=== PATIENT | female | born 1945 | race Caucasian/White ===

== ENCOUNTER 2018-12-22 18:03 | Inpatient (IN) | payer MEDICARE, BC ==
[~2018-12-22] VITALS: Ht 165.1 cm; Wt 99.1 kg
--- NOTE | 2018-12-22 18:40 | NUR ---
Pt tearful with high anxiety. Redirectable with effort.
[2018-12-22 19:04] LABS: BASOPHILS # (AUTO) 0.2 X10'3 (0-0.2); BASOPHILS % (AUTO) 1.3 % (0-1); EOSINOPHILS # (AUTO) 0.1 X10'3 (0-0.9); EOSINOPHILS % (AUTO) 0.7 % (0-6); HEMATOCRIT 37.2 % (35.0-45.0); HEMOGLOBIN 12.1 g/dl (12.0-16.0); LYMPHOCYTES # (AUTO) 1.6 X10'3 (1.1-4.8); LYMPHOCYTES % (AUTO) 12.6 % (21-51); MEAN CORPUSCULAR HEMOGLOBIN 30.3 PG (27.0-31.0); MEAN CORPUSCULAR HGB CONC 32.6 g/dL (33.0-36.5); MEAN CORPUSCULAR VOLUME 92.9 FL (78-98); MEAN PLATELET VOLUME 9.1 FL (7.4-10.4); MONOCYTES # (AUTO) 0.9 X10'3 (0-0.9); MONOCYTES % (AUTO) 7.6 % (2-12); NEUTROPHILS # (AUTO) 9.6 X10'3 (1.8-7.7); NEUTROPHILS % (AUTO) 77.8 % (42-75); PLATELET COUNT 215 X10'3 (140-440); RED CELL DISTRIBUTION WIDTH 15.7 % (11.5-14.5); WHITE BLOOD COUNT 12.3 X10'3 (4.5-11.0)
[2018-12-22 19:34] LABS: ALANINE AMINOTRANSFERASE 16 U/L (12-78); ALBUMIN/GLOBULIN RATIO 0.6 (1.1-1.5); ALKALINE PHOSPHATASE 48 IU/L (46-116); ANION GAP 7 (8-16); ASPARTATE AMINO TRANSFERASE 16 U/L (10-37); BILIRUBIN,TOTAL 0.4 MG/DL (0.1-1.0); BLOOD UREA NITROGEN 26 MG/DL (7-18); BUN/CREATININE RATIO 17.2 (6.6-38.0); CALCIUM 9.8 MG/DL (8.5-10.1); CHLORIDE 104 MMOL/L (99-107); CREATININE 1.51 MG/DL (0.40-0.90); GLUCOSE 204 MG/DL (70-104); SODIUM 142 MMOL/L (135-145); TOTAL PROTEIN 7.8 G/DL (6.4-8.2); eGFR 34 ML/MIN
[2018-12-22 19:37] LABS: POTASSIUM 4.6 MMOL/L (3.5-5.1)
[2018-12-22] MEDS ORDERED: CefTRIAXone 2gm/D5W 50ml 50 ML IV ONE (20:40)
[2018-12-22] MEDS ORDERED: azithromycin/NS 500mg/250ml 250 ML IV ONE (20:40)
[2018-12-22] MEDS ORDERED: LORazepam 2 mg/ml vial IV ONE (20:50)
[2018-12-22] MEDS ORDERED: mag hydrox/Alum hydrox/simeth 30ml oral suspension PO PRN (21:10)
[2018-12-22] MEDS ORDERED: magnesium Cl slow-release 64mg tablet PO PRN (21:10)
[2018-12-22] MEDS ORDERED: magnesium 4gm in 100ml NS 100 ML IV PRN (21:10)
[2018-12-22] MEDS ORDERED: potassium CL 10mEq/100ml bag 100 ML IV PRN ×2 (21:10)
[2018-12-22] MEDS ORDERED: acetaminophen 325mg tablet PO PRN (21:10)
[2018-12-22] MEDS ORDERED: potassium Cl 20 mEq SR tablet PO PRN ×2 (21:10)
[2018-12-22] MEDS ORDERED: magnesium 2GM in 50ml NS 50 ML IV PRN (21:10)
[2018-12-22] MEDS ORDERED: magnesium hydroxide 30ml (MOM) UD suspension PO PRN (21:10)
[2018-12-22] MEDS ORDERED: ondansetron/PF 4mg/2ml inj IV PRN (21:10)
--- NOTE | 2018-12-22 21:31 | NUR ---
pt belonings: campos counted with Reg & receipted (T+$177: 1x$100, 1x$50, 2x$10, 1x$5, 2x$1). 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
[2018-12-22] MEDS ORDERED: GLIMEPIRIDE 4 MG TABLET (21:42)
[2018-12-22] MEDS ORDERED: LORAZEPAM 2 MG TABLET (21:42)
[2018-12-22] MEDS ORDERED: METFORMIN HCL 500 MG TABLET (21:42)
[2018-12-22] MEDS ORDERED: ESCITALOPRAM 10 MG TABLET (21:42)
[2018-12-22] MEDS ORDERED: LOSARTAN POTASSIUM 100 MG TAB (21:42)
[2018-12-22] MEDS ORDERED: NATEGLINIDE 120 MG TABLET (21:42)
[2018-12-22] MEDS ORDERED: CLOPIDOGREL 75 MG TABLET (21:42)
[2018-12-22] MEDS ORDERED: FUROSEMIDE 40 MG TABLET (21:42)
[2018-12-22] MEDS ORDERED: CALCITRIOL 0.5 MCG CAPSULE PO (21:42)
[2018-12-22] MEDS ORDERED: ROSUVASTATIN CALCIUM 10 MG TAB (21:42)
[2018-12-22] MEDS ORDERED: CARVEDILOL 25 MG TABLET (21:42)
[2018-12-22] MEDS ORDERED: SAXA5TAB PO (21:50)
[2018-12-22] MEDS ORDERED: LACT1CAP65 PO (21:50)
[2018-12-22] MEDS ORDERED: ASPI-1265 PO (21:50)
[2018-12-22] MEDS ORDERED: ESCI10TA PO (21:50)
[2018-12-22 22:30] VITALS: BP 137/68
[2018-12-22] MEDS ORDERED: ipratropium/albuterol 3ml nebule NEB PRN (23:50)
[2018-12-23] MEDS ORDERED: dextrose ORAL solution 15 GM/59 ML bottle PO PRN ×2 (01:15)
[2018-12-23] MEDS ORDERED: MESSAGE TO PHARMACY PO ONE (01:15)
[2018-12-23] MEDS ORDERED: glucagon, human recombinant 1mg kit SUBCUT PRN (01:15)
[2018-12-23] MEDS ORDERED: dextrose 50%-water 50ml dispensing syringe IV PRN ×2 (01:15)
[2018-12-23] MEDS: lactobacillus rhamnosus 10,000 MMU CELLS/CAPSULE PO SCH ×3 (01:59→15:15)
[2018-12-23 02:00] VITALS: BP 150/57
[2018-12-23 06:00] VITALS: BP 110/62
--- NOTE | 2018-12-23 06:22 | NUR ---
REPORT GIVEN TO MENDEZ SAVAGE.
--- NOTE | 2018-12-23 06:32 | NUR ---
Patient in room [facility] 4011. I have received report from Dolores and had the opportunity to ask questions and assume patient care.
[2018-12-23 07:57] LABS: BASOPHILS # (AUTO) 0.1 X10'3 (0-0.2); BASOPHILS % (AUTO) 1.5 % (0-1); EOSINOPHILS # (AUTO) 0.2 X10'3 (0-0.9); EOSINOPHILS % (AUTO) 2.4 % (0-6); HEMATOCRIT 34.9 % (35.0-45.0); HEMOGLOBIN 11.4 g/dl (12.0-16.0); LYMPHOCYTES # (AUTO) 1.9 X10'3 (1.1-4.8); LYMPHOCYTES % (AUTO) 21.4 % (21-51); MEAN CORPUSCULAR HEMOGLOBIN 30.8 PG (27.0-31.0); MEAN CORPUSCULAR HGB CONC 32.7 g/dL (33.0-36.5); MEAN CORPUSCULAR VOLUME 94.2 FL (78-98); MEAN PLATELET VOLUME 9.7 FL (7.4-10.4); MONOCYTES # (AUTO) 0.9 X10'3 (0-0.9); MONOCYTES % (AUTO) 10.3 % (2-12); NEUTROPHILS # (AUTO) 5.7 X10'3 (1.8-7.7); NEUTROPHILS % (AUTO) 64.4 % (42-75); PLATELET COUNT 187 X10'3 (140-440); RED CELL DISTRIBUTION WIDTH 16.1 % (11.5-14.5); WHITE BLOOD COUNT 8.8 X10'3 (4.5-11.0)
[2018-12-23] MEDS: K and/or MAG REPLACEMENT MC SCH (08:00)
[2018-12-23] MEDS: aspirin 81mg tab.chew PO SCH (08:00)
[2018-12-23] MEDS: heparin, porcine 5000 units/ml vial SQ SCH ×2 (08:00→19:11)
[2018-12-23 08:08] LABS: ALBUMIN 2.6 G/DL (3.4-5.0); ANION GAP 5 (8-16); BLOOD UREA NITROGEN 23 MG/DL (7-18); BUN/CREATININE RATIO 16.5 (6.6-38.0); CALCIUM 9.4 MG/DL (8.5-10.1); CHLORIDE 109 MMOL/L (99-107); CREATININE 1.39 MG/DL (0.40-0.90); GLUCOSE 104 MG/DL (70-104); MAGNESIUM 2.1 MG/DL (1.5-2.4); POTASSIUM 3.9 MMOL/L (3.5-5.1); SODIUM 144 MMOL/L (135-145); eGFR 37 ML/MIN
[2018-12-23] MEDS: ESCITALOPRAM OXALATE 5 MG TABLET PO SCH (08:39)
[2018-12-23 10:00] VITALS: BP 147/64
--- NOTE | 2018-12-23 12:18 | NUR ---
Problems reprioritized. Patient report given, questions answered & plan of care reviewed with Kristina SIMMS.
--- NOTE | 2018-12-23 12:19 | NUR ---
Student Medication Administration:For this medication-pass time frame 7169-5840, all medications were reviewed,administered and documented per hospital policy by Arlette Silva. Student documentation:I have reviewed and agree with all interventions, assessments performed and documented by Arlette Silva.
[2018-12-23] MEDS: insulin Lispro (HumaLOG) vial - multi-dose SQ SCH ×2 (13:24→19:18)
[2018-12-23] MEDS: clopidogrel 75mg tablet PO SCH (13:46)
[2018-12-23] MEDS: LORazepam 1 MG tablet PO PRN ×2 (13:46→21:12)
[2018-12-23] MEDS ORDERED: furosemide 40mg/4ml inj IV ONE (14:05)
--- NOTE | 2018-12-23 14:05 | NUR ---
Ambulated pt in hallway using FWW. O2 on a 3L/NC while ambulating. Pulse ox prior to ambulation on 3L/02 = 92%. Pt ambulated 300 ft using FWW. Pt stopped approximately 75 feet from room. P.Ox read 82%. Encouraged pt to cough and deep breathe. 02 sat increased to 90% Gave pt I/S and instructed to use q1h and more frequently when awake. Pt returned to bed with 02 on at 3l. Pulse ox 96% at rest. Will continue to monitor.
[2018-12-23 18:00] VITALS: BP 142/69
--- NOTE | 2018-12-23 18:24 | NUR ---
Problems reprioritized. Patient report given, questions answered & plan of care reviewed with Sarah/MENDEZ Vargas.
[2018-12-23] MEDS: carVEDilol 12.5mg tablet PO SCH (19:12)
[2018-12-23] MEDS: acetaminophen 325mg tablet PO PRN (19:15)
[2018-12-23] MEDS: furosemide 40mg/4ml inj IV SCH (19:23)
[2018-12-23] MEDS: CefTRIAXone 2gm/D5W 50ml 50 ML IV SCH (19:24)
[2018-12-23] MEDS: atorvastatin 10mg tablet PO SCH (20:58)
[2018-12-23] MEDS ORDERED: azithromycin/NS 500mg/250ml 250 ML IV SCH (21:00)
[2018-12-23] MEDS: insulin glargine (Lantus) pen - multi-dose SQ SCH (21:11)
[2018-12-23 22:00] VITALS: BP 117/51
[2018-12-24] MEDS: lactobacillus rhamnosus 10,000 MMU CELLS/CAPSULE PO SCH ×4 (00:39→23:28)
[2018-12-24 06:00] VITALS: BP 129/51
--- NOTE | 2018-12-24 06:09 | NUR ---
Patient in room [facility] 4011. I have received report from MENDEZ Smith and MENDEZ Vargas and had the opportunity to ask questions and assume patient care. Addendum: 12/24/18 at 0610 by Gayatri Welch RN Amended: Links added.
[2018-12-24 07:02] LABS: BASOPHILS # (AUTO) 0.1 X10'3 (0-0.2); BASOPHILS % (AUTO) 1.4 % (0-1); EOSINOPHILS # (AUTO) 0.3 X10'3 (0-0.9); EOSINOPHILS % (AUTO) 4.7 % (0-6); HEMATOCRIT 37.1 % (35.0-45.0); HEMOGLOBIN 12.1 g/dl (12.0-16.0); LYMPHOCYTES # (AUTO) 1.7 X10'3 (1.1-4.8); LYMPHOCYTES % (AUTO) 27.5 % (21-51); MEAN CORPUSCULAR HEMOGLOBIN 30.7 PG (27.0-31.0); MEAN CORPUSCULAR HGB CONC 32.6 g/dL (33.0-36.5); MEAN CORPUSCULAR VOLUME 94.2 FL (78-98); MEAN PLATELET VOLUME 9.7 FL (7.4-10.4); MONOCYTES # (AUTO) 0.7 X10'3 (0-0.9); MONOCYTES % (AUTO) 12.1 % (2-12); NEUTROPHILS # (AUTO) 3.3 X10'3 (1.8-7.7); NEUTROPHILS % (AUTO) 54.3 % (42-75); PLATELET COUNT 195 X10'3 (140-440); RED BLOOD COUNT 3.94 X10'6 (4.20-5.60); RED CELL DISTRIBUTION WIDTH 15.2 % (11.5-14.5); WHITE BLOOD COUNT 6.1 X10'3 (4.5-11.0)
[2018-12-24 07:06] LABS: ALBUMIN 2.6 G/DL (3.4-5.0); ANION GAP 4 (8-16); BLOOD UREA NITROGEN 29 MG/DL (7-18); BUN/CREATININE RATIO 18.4 (6.6-38.0); CALCIUM 9.2 MG/DL (8.5-10.1); CHLORIDE 104 MMOL/L (99-107); CREATININE 1.58 MG/DL (0.40-0.90); GLUCOSE 130 MG/DL (70-104); MAGNESIUM 2.2 MG/DL (1.5-2.4); POTASSIUM 3.9 MMOL/L (3.5-5.1); SODIUM 142 MMOL/L (135-145); TOTAL CARBON DIOXIDE 33.7 MMOL/L (24-32); eGFR 32 ML/MIN
[2018-12-24] MEDS: K and/or MAG REPLACEMENT MC SCH (08:00)
[2018-12-24] MEDS: furosemide 40mg/4ml inj IV SCH ×2 (08:57→20:28)
[2018-12-24] MEDS: clopidogrel 75mg tablet PO SCH (08:59)
[2018-12-24] MEDS: aspirin 81mg tab.chew PO SCH (08:59)
[2018-12-24] MEDS: carVEDilol 12.5mg tablet PO SCH ×2 (08:59→20:29)
[2018-12-24] MEDS: heparin, porcine 5000 units/ml vial SQ SCH ×2 (08:59→20:29)
[2018-12-24] MEDS: losartan 50mg tablet PO SCH (09:01)
[2018-12-24] MEDS: insulin Lispro (HumaLOG) vial - multi-dose SQ SCH ×2 (09:03→18:57)
[2018-12-24] MEDS: ESCITALOPRAM OXALATE 5 MG TABLET PO SCH (09:05)
[2018-12-24 10:00] VITALS: BP 116/53
--- NOTE | 2018-12-24 15:40 | NUR ---
DM Consult: A1C 10.0. Pt seen by RD for written/verbal DM ed w/ RD contact information provided. Pt declined verbal DM ed review; reports had appointment at [facility] prior to [facility] and has to reschedule now. RD encouraged attending [facility]. PO 100% meals meeting needs. Addendum: 12/24/18 at [address] Amended: Links added.
[2018-12-24 18:00] VITALS: BP 142/58
--- NOTE | 2018-12-24 18:15 | NUR ---
Problems reprioritized. Patient report given, questions answered & plan of care reviewed with MENDEZ Obrien. Addendum: 12/24/18 at 1816 by Gayatri Welch RN Amended: Links added.
--- NOTE | 2018-12-24 18:15 | NUR ---
Patient in room [facility] 4011. I have received report from MENDEZ Mendieta and had the opportunity to ask questions and assume patient care.
[2018-12-24 20:21] VITALS: BP 117/45
[2018-12-24] MEDS: CefTRIAXone 2gm/D5W 50ml 50 ML IV SCH (20:24)
[2018-12-24] MEDS: atorvastatin 10mg tablet PO SCH (20:29)
[2018-12-24] MEDS: LORazepam 1 MG tablet PO PRN (21:15)
[2018-12-24] MEDS: insulin glargine (Lantus) pen - multi-dose SQ SCH (21:21)
[2018-12-24 22:00] VITALS: BP 121/61
[2018-12-24] MEDS: benzonatate 100mg capsule PO PRN (23:29)
[2018-12-25] MEDS: benzonatate 100mg capsule PO PRN ×3 (05:28→21:21)
[2018-12-25 06:00] VITALS: BP 142/54
--- NOTE | 2018-12-25 06:22 | NUR ---
received report from cristi cervantes
--- NOTE | 2018-12-25 06:23 | NUR ---
Problems reprioritized. Patient report given, questions answered & plan of care reviewed with MENDEZ Gillespie.
[2018-12-25 07:19] LABS: BASOPHILS # (AUTO) 0.1 X10'3 (0-0.2); BASOPHILS % (AUTO) 1.2 % (0-1); EOSINOPHILS # (AUTO) 0.3 X10'3 (0-0.9); EOSINOPHILS % (AUTO) 4.9 % (0-6); HEMATOCRIT 35.8 % (35.0-45.0); HEMOGLOBIN 11.8 g/dl (12.0-16.0); LYMPHOCYTES # (AUTO) 1.7 X10'3 (1.1-4.8); LYMPHOCYTES % (AUTO) 24.1 % (21-51); MEAN CORPUSCULAR HEMOGLOBIN 30.7 PG (27.0-31.0); MEAN CORPUSCULAR VOLUME 93.1 FL (78-98); MEAN PLATELET VOLUME 9.2 FL (7.4-10.4); MONOCYTES # (AUTO) 0.8 X10'3 (0-0.9); NEUTROPHILS # (AUTO) 4.1 X10'3 (1.8-7.7); NEUTROPHILS % (AUTO) 57.8 % (42-75); PLATELET COUNT 213 X10'3 (140-440); RED BLOOD COUNT 3.84 X10'6 (4.20-5.60); RED CELL DISTRIBUTION WIDTH 15.5 % (11.5-14.5); WHITE BLOOD COUNT 7.1 X10'3 (4.5-11.0)
[2018-12-25 07:36] LABS: ALBUMIN 2.6 G/DL (3.4-5.0); ANION GAP 3 (8-16); BLOOD UREA NITROGEN 31 MG/DL (7-18); BUN/CREATININE RATIO 19.6 (6.6-38.0); CALCIUM 8.8 MG/DL (8.5-10.1); CHLORIDE 106 MMOL/L (99-107); CREATININE 1.58 MG/DL (0.40-0.90); GLUCOSE 125 MG/DL (70-104); MAGNESIUM 1.9 MG/DL (1.5-2.4); POTASSIUM 3.9 MMOL/L (3.5-5.1); SODIUM 145 MMOL/L (135-145); TOTAL CARBON DIOXIDE 35.9 MMOL/L (24-32); eGFR 32 ML/MIN
[2018-12-25] MEDS: K and/or MAG REPLACEMENT MC SCH (08:00)
[2018-12-25] MEDS: carVEDilol 12.5mg tablet PO SCH ×2 (08:00→20:12)
[2018-12-25] MEDS: furosemide 40mg/4ml inj IV SCH ×2 (08:00→21:21)
[2018-12-25] MEDS: losartan 50mg tablet PO SCH (08:00)
[2018-12-25] MEDS: aspirin 81mg tab.chew PO SCH (08:23)
[2018-12-25] MEDS: lactobacillus rhamnosus 10,000 MMU CELLS/CAPSULE PO SCH ×2 (08:24→16:24)
[2018-12-25] MEDS: ESCITALOPRAM OXALATE 5 MG TABLET PO SCH (08:25)
[2018-12-25] MEDS: clopidogrel 75mg tablet PO SCH (08:25)
[2018-12-25] MEDS: azithromycin 250mg tablet PO SCH (08:26)
[2018-12-25] MEDS: heparin, porcine 5000 units/ml vial SQ SCH ×2 (08:28→20:12)
[2018-12-25] MEDS: insulin Lispro (HumaLOG) vial - multi-dose SQ SCH ×3 (08:54→18:56)
[2018-12-25 10:00] VITALS: BP 109/48
--- NOTE | 2018-12-25 12:57 | NUR ---
Initial: Pt admit w/ low oxygen saturation PO 75-100% meals meeting needs. LBM 12/22. Will continue to monitor. Rec: 1. continue carb controlled diet 2. wt per rx Addendum: 12/25/18 at [address] Amended: Links added.
[2018-12-25 18:00] VITALS: BP 122/50
--- NOTE | 2018-12-25 18:09 | NUR ---
GAVE REPORT MENDEZ PIPER
--- NOTE | 2018-12-25 18:20 | NUR ---
Patient in room [facility] 4011. I have received report from MENDEZ Gillespie and had the opportunity to ask questions and assume patient care.
[2018-12-25 20:08] VITALS: BP 147/60
[2018-12-25] MEDS: atorvastatin 10mg tablet PO SCH (20:12)
[2018-12-25] MEDS: CefTRIAXone 2gm/D5W 50ml 50 ML IV SCH (21:08)
[2018-12-25] MEDS: LORazepam 1 MG tablet PO PRN (21:21)
[2018-12-25] MEDS: insulin glargine (Lantus) pen - multi-dose SQ SCH (21:31)
[2018-12-25 22:00] VITALS: BP 119/46
[2018-12-26 06:00] VITALS: BP 137/58
[2018-12-26 06:12] LABS: BASOPHILS % (AUTO) 0.8 % (0-1); EOSINOPHILS # (AUTO) 0.3 X10'3 (0-0.9); EOSINOPHILS % (AUTO) 4.7 % (0-6); HEMATOCRIT 34.8 % (35.0-45.0); HEMOGLOBIN 11.6 g/dl (12.0-16.0); LYMPHOCYTES # (AUTO) 1.7 X10'3 (1.1-4.8); LYMPHOCYTES % (AUTO) 27.6 % (21-51); MEAN CORPUSCULAR HGB CONC 33.3 g/dL (33.0-36.5); MEAN CORPUSCULAR VOLUME 93.1 FL (78-98); MEAN PLATELET VOLUME 9.3 FL (7.4-10.4); MONOCYTES # (AUTO) 0.7 X10'3 (0-0.9); MONOCYTES % (AUTO) 12.1 % (2-12); NEUTROPHILS # (AUTO) 3.3 X10'3 (1.8-7.7); NEUTROPHILS % (AUTO) 54.8 % (42-75); PLATELET COUNT 219 X10'3 (140-440); RED BLOOD COUNT 3.74 X10'6 (4.20-5.60); RED CELL DISTRIBUTION WIDTH 15.4 % (11.5-14.5); WHITE BLOOD COUNT 6.1 X10'3 (4.5-11.0)
--- NOTE | 2018-12-26 06:30 | NUR ---
Problems reprioritized. Patient report given, questions answered & plan of care reviewed with MENDEZ Phipps.
--- NOTE | 2018-12-26 06:40 | NUR ---
Patient in room [facility] 4011. I have received report from Camille and had the opportunity to ask questions and assume patient care.
[2018-12-26 07:22] LABS: ALBUMIN 2.6 G/DL (3.4-5.0); ANION GAP 8 (8-16); BLOOD UREA NITROGEN 34 MG/DL (7-18); BUN/CREATININE RATIO 21.3 (6.6-38.0); CALCIUM 8.9 MG/DL (8.5-10.1); CHLORIDE 104 MMOL/L (99-107); GLUCOSE 149 MG/DL (70-104); MAGNESIUM 2.1 MG/DL (1.5-2.4); POTASSIUM 3.8 MMOL/L (3.5-5.1); SODIUM 144 MMOL/L (135-145); TOTAL CARBON DIOXIDE 32.1 MMOL/L (24-32); eGFR 32 ML/MIN
[2018-12-26] MEDS: K and/or MAG REPLACEMENT MC SCH (08:00)
[2018-12-26] MEDS: furosemide 40mg/4ml inj IV SCH ×2 (08:32→20:45)
[2018-12-26] MEDS: aspirin 81mg tab.chew PO SCH (08:41)
[2018-12-26] MEDS: carVEDilol 12.5mg tablet PO SCH ×2 (08:43→20:00)
[2018-12-26] MEDS: losartan 50mg tablet PO SCH (08:44)
[2018-12-26] MEDS: lactobacillus rhamnosus 10,000 MMU CELLS/CAPSULE PO SCH ×3 (08:45→16:00)
[2018-12-26] MEDS: ESCITALOPRAM OXALATE 5 MG TABLET PO SCH (08:46)
[2018-12-26] MEDS: clopidogrel 75mg tablet PO SCH (08:47)
[2018-12-26] MEDS: azithromycin 250mg tablet PO SCH (08:48)
[2018-12-26] MEDS: heparin, porcine 5000 units/ml vial SQ SCH ×2 (08:54→20:45)
[2018-12-26] MEDS: insulin Lispro (HumaLOG) vial - multi-dose SQ SCH ×3 (09:11→18:58)
[2018-12-26 10:00] VITALS: BP 118/47
[2018-12-26 16:15] LABS: CHOL/HDL RATIO 2.3 (0.00-4.99); CHOLESTEROL 147 MG/DL (0-200); HDL CHOLESTEROL 63 MG/DL (35-60); LDL CHOLESTEROL 70 MG/DL (50-100); TRIGLYCERIDES 148 MG/DL (20-135)
[2018-12-26] MEDS: acetaminophen 325mg tablet PO PRN (17:51)
[2018-12-26 18:00] VITALS: BP 117/50
--- NOTE | 2018-12-26 18:10 | NUR ---
Patient in room [facility] 4011. I have received report from MENDEZ Phipps and had the opportunity to ask questions and assume patient care.
--- NOTE | 2018-12-26 18:15 | NUR ---
Problems reprioritized. Patient report given, questions answered & plan of care reviewed with Camille SIMMS.
[2018-12-26] MEDS: atorvastatin 10mg tablet PO SCH (20:44)
[2018-12-26] MEDS: CefTRIAXone 2gm/D5W 50ml 50 ML IV SCH (20:44)
[2018-12-26] MEDS ORDERED: Melatonin 3mg tablet PO SCH (21:00)
[2018-12-26] MEDS: insulin glargine (Lantus) pen - multi-dose SQ SCH (21:04)
[2018-12-26 22:00] VITALS: BP 125/36
[2018-12-27] MEDS: benzonatate 100mg capsule PO PRN (03:27)
[2018-12-27 06:00] VITALS: BP 135/53
--- NOTE | 2018-12-27 06:20 | NUR ---
Patient in room [facility] 4011. I have received report from Camille and had the opportunity to ask questions and assume patient care.
--- NOTE | 2018-12-27 06:22 | NUR ---
Problems reprioritized. Patient report given, questions answered & plan of care reviewed with MENDEZ Phipps.
[2018-12-27 06:45] LABS: BASOPHILS # (AUTO) 0.1 X10'3 (0-0.2); BASOPHILS % (AUTO) 1.2 % (0-1); EOSINOPHILS # (AUTO) 0.4 X10'3 (0-0.9); EOSINOPHILS % (AUTO) 5.6 % (0-6); HEMATOCRIT 34.7 % (35.0-45.0); HEMOGLOBIN 11.4 g/dl (12.0-16.0); LYMPHOCYTES # (AUTO) 1.9 X10'3 (1.1-4.8); LYMPHOCYTES % (AUTO) 29.7 % (21-51); MEAN CORPUSCULAR HEMOGLOBIN 30.7 PG (27.0-31.0); MEAN CORPUSCULAR HGB CONC 32.8 g/dL (33.0-36.5); MEAN CORPUSCULAR VOLUME 93.6 FL (78-98); MEAN PLATELET VOLUME 9.5 FL (7.4-10.4); MONOCYTES # (AUTO) 0.8 X10'3 (0-0.9); MONOCYTES % (AUTO) 12.6 % (2-12); NEUTROPHILS # (AUTO) 3.3 X10'3 (1.8-7.7); NEUTROPHILS % (AUTO) 50.9 % (42-75); PLATELET COUNT 207 X10'3 (140-440); RED CELL DISTRIBUTION WIDTH 15.2 % (11.5-14.5); WHITE BLOOD COUNT 6.5 X10'3 (4.5-11.0)
[2018-12-27 06:56] LABS: ALBUMIN 2.7 G/DL (3.4-5.0); ANION GAP 5 (8-16); BLOOD UREA NITROGEN 37 MG/DL (7-18); BUN/CREATININE RATIO 21.8 (6.6-38.0); CALCIUM 8.7 MG/DL (8.5-10.1); CHLORIDE 103 MMOL/L (99-107); GLUCOSE 166 MG/DL (70-104); POTASSIUM 3.9 MMOL/L (3.5-5.1); SODIUM 144 MMOL/L (135-145); TOTAL CARBON DIOXIDE 35.9 MMOL/L (24-32); eGFR 30 ML/MIN
[2018-12-27] MEDS: furosemide 40mg/4ml inj IV SCH (07:48)
[2018-12-27] MEDS: aspirin 81mg tab.chew PO SCH (07:49)
[2018-12-27] MEDS: lactobacillus rhamnosus 10,000 MMU CELLS/CAPSULE PO SCH ×2 (07:53)
[2018-12-27] MEDS: losartan 50mg tablet PO SCH (07:53)
[2018-12-27] MEDS: clopidogrel 75mg tablet PO SCH (07:56)
[2018-12-27] MEDS: azithromycin 250mg tablet PO SCH (07:56)
[2018-12-27] MEDS: heparin, porcine 5000 units/ml vial SQ SCH (07:56)
[2018-12-27] MEDS: carVEDilol 12.5mg tablet PO SCH (07:57)
[2018-12-27] MEDS ORDERED: ESCITALOPRAM OXALATE 5 MG TABLET PO SCH (08:00)
[2018-12-27] MEDS: K and/or MAG REPLACEMENT MC SCH (08:00)
[2018-12-27] MEDS: insulin Lispro (HumaLOG) vial - multi-dose SQ SCH (08:43)
[2018-12-27 08:58] VITALS: BP 143/56
--- NOTE | 2018-12-27 10:57 | NUR ---
O2 Sat at rest on room air:_88__% If below 89%: Recovery O2 Sat at rest on _2__LPM:__92_%:___% via___nasal cannula (mask/nasal cannula, etc..) No further documentation is necessary. If O2 Sat did not drop below 89% on room air,ambulate patient on room air. O2 Sat while ambulating on room air:_88__% Recovery O2 Sat while ambulating on __2_LPM:__93_% No further documentation is necessary. If patient does not drop below 89% while ambulating, he/she does not qualify for home O2.
[2018-12-27] MEDS ORDERED: ESCI5TAB PO (11:29)
[2018-12-27] MEDS ORDERED: LEVO500T2 PO (11:29)
[2018-12-27] MEDS ORDERED: MELA3TAB64 PO (11:29)
[2018-12-27] MEDS ORDERED: IPRA3AMP9 NEB (11:29)
--- NOTE | 2018-12-27 13:37 | NUR ---
Reviewed discharge instructions with pt. Pt verbalized understanding. Pt is alert, oriented and does not have c/o pain or discomfort at this time. Pt was wheeled downstairs to be driven home by her son. Pt has belongings with security and will be stopping at the front desk admin for assistance.
== END 2018-12-27 13:30 | disposition home health service (06) | DRG 682 ==
LOC: ER 18:05 → ED HOLD 21:12 → CMPBEDREQ 22:50 → ORTHO 4S 22:58
PROVIDERS: ADMIT Hospitalist; ATTEND Family Medicine
PROC: CB121ZZ Planar Nuclear Medicine Imaging of Lungs and Bronchi using Technetium 99m (Tc-99m) (ICD-10-PCS; principal; 2018-12-24)
DX: N17.9 Acute kidney failure, unspecified (principal); J96.01 Acute respiratory failure with hypoxia; I50.33 Acute on chronic diastolic (congestive) heart failure; J18.9 Pneumonia, unspecified organism; I13.0 Hypertensive heart and chronic kidney disease with heart failure and stage 1 through stage 4 chronic kidney disease, or unspecified chronic kidney disease; J44.1 Chronic obstructive pulmonary disease with (acute) exacerbation; J44.0 Chronic obstructive pulmonary disease with (acute) lower respiratory infection; D63.1 Anemia in chronic kidney disease; E11.22 Type 2 diabetes mellitus with diabetic chronic kidney disease; E78.5 Hyperlipidemia, unspecified; F41.1 Generalized anxiety disorder; G47.00 Insomnia, unspecified; I25.10 Atherosclerotic heart disease of native coronary artery without angina pectoris; J20.9 Acute bronchitis, unspecified; N18.3 Chronic kidney disease, stage 3 (moderate); Z90.49 Acquired absence of other specified parts of digestive tract; Z90.710 Acquired absence of both cervix and uterus; Z95.5 Presence of coronary angioplasty implant and graft
CPT/HCPCS: 36415; 71045; 78582; 80048; 80053; 80061; 82948; 83036; 83605; 83735; 83880; 84145; 84443; 84484; 85025; 85610; 87040; 87081; 93005; 93306; 94760; 96365; 96368; 96375; 99285; A9539; A9540; G0378; J0456; J0696; J1644; J1815; J1940; J2060

== ENCOUNTER 2019-02-25 03:14 | Outpatient (CLI) | payer MEDICARE, BC ==
[~2019-02-25 03:14] MED LIST: ASPI-1265 PO; CALCITRIOL 0.5 MCG CAPSULE PO; CARVEDILOL 25 MG TABLET; CLOPIDOGREL 75 MG TABLET; ESCI5TAB PO; FUROSEMIDE 40 MG TABLET; GLIMEPIRIDE 4 MG TABLET; IPRA3AMP9 NEB; LACT1CAP65 PO; LORAZEPAM 2 MG TABLET; LOSARTAN POTASSIUM 100 MG TAB; MELA3TAB64 PO; METFORMIN HCL 500 MG TABLET; NATEGLINIDE 120 MG TABLET; ROSUVASTATIN CALCIUM 10 MG TAB; SAXA5TAB PO
== END 2019-02-25 23:59 | disposition home or self-care (01) ==
LOC: DIABETIC 03:14
PROVIDERS: ATTEND Specialist
DX: E11.65 Type 2 diabetes mellitus with hyperglycemia (principal); I10 Essential (primary) hypertension; Z79.82 Long term (current) use of aspirin; Z79.4 Long term (current) use of insulin; Z79.899 Other long term (current) drug therapy
CPT/HCPCS: G0108

== ENCOUNTER 2019-03-30 04:21 | Outpatient (CLI) | payer MEDICARE, BC | END 2019-03-30 23:59 | disposition home or self-care (01) | LOC: DIABETIC 04:21 | PROVIDERS: ATTEND Specialist | DX: E11.69 Type 2 diabetes mellitus with other specified complication (principal) | CPT/HCPCS: G0108 ==

== ENCOUNTER 2022-03-01 13:15 | Emergency (ER) | payer MEDICARE, BC ==
[~2022-03-01] VITALS: Ht 165.1 cm; Wt 102.3 kg
[~2022-03-01 13:15] MED LIST changes: -CALCITRIOL 0.5 MCG CAPSULE PO; +CARV25TA2 PO; -CARVEDILOL 25 MG TABLET; +CINA30TA7 PO; +CLOP75TA34 PO; -CLOPIDOGREL 75 MG TABLET; +ERGO500054 PO; -ESCI5TAB PO; +FURO40TA4 PO; -FUROSEMIDE 40 MG TABLET; -GLIMEPIRIDE 4 MG TABLET; -IPRA3AMP9 NEB; -LACT1CAP65 PO; -LORAZEPAM 2 MG TABLET; -LOSARTAN POTASSIUM 100 MG TAB; -MELA3TAB64 PO; -METFORMIN HCL 500 MG TABLET; -NATEGLINIDE 120 MG TABLET; +OXYB5TAB16 PO; +POTA-205 PO; +ROSU10TA28 PO; -ROSUVASTATIN CALCIUM 10 MG TAB; +SACU1TAB4 PO; -SAXA5TAB PO
[2022-03-01] MEDS ORDERED: furosemide 40mg/4ml inj IV ONE (14:30)
[2022-03-01 15:22] LABS: APTT 29 SECONDS (22-32); BASOPHILS # (AUTO) 0.1 X10'3 (0-0.2); BASOPHILS % (AUTO) 0.8 % (0-1); EOSINOPHILS # (AUTO) 0.1 X10'3 (0-0.9); EOSINOPHILS % (AUTO) 1.2 % (0-6); HEMATOCRIT 33.4 % (35.0-45.0); HEMOGLOBIN 10.4 g/dl (12.0-16.0); LYMPHOCYTES # (AUTO) 0.7 X10'3 (1.1-4.8); MEAN CORPUSCULAR HEMOGLOBIN 30.8 PG (27.0-31.0); MEAN CORPUSCULAR HGB CONC 31.2 g/dL (33.0-36.5); MEAN CORPUSCULAR VOLUME 98.5 FL (78-98); MEAN PLATELET VOLUME 8.7 FL (7.4-10.4); MONOCYTES # (AUTO) 0.4 X10'3 (0-0.9); MONOCYTES % (AUTO) 6.3 % (2-12); NEUTROPHILS # (AUTO) 5.7 X10'3 (1.8-7.7); NEUTROPHILS % (AUTO) 81.7 % (42-75); PLATELET COUNT 175 X10'3 (140-440); RED BLOOD COUNT 3.39 X10'6 (4.20-5.60); RED CELL DISTRIBUTION WIDTH 15.9 % (11.5-14.5)
[2022-03-01 15:33] LABS: ALANINE AMINOTRANSFERASE 7 U/L (12-78); ALBUMIN 2.7 G/DL (3.4-5.0); ALBUMIN/GLOBULIN RATIO 0.6 (1.1-1.5); ALKALINE PHOSPHATASE 44 IU/L (46-116); ANION GAP 7 (8-16); ASPARTATE AMINO TRANSFERASE 11 U/L (10-37); BILIRUBIN,TOTAL 0.2 MG/DL (0.1-1.0); BLOOD UREA NITROGEN 38 MG/DL (7-18); BUN/CREATININE RATIO 14.9 (6.6-38.0); CALCIUM 8.1 MG/DL (8.5-10.1); CHLORIDE 113 MMOL/L (99-107); CREATININE 2.55 MG/DL (0.40-0.90); GLUCOSE 165 MG/DL (70-104); MAGNESIUM 2.1 MG/DL (1.5-2.4); POTASSIUM 5.4 MMOL/L (3.5-5.1); SODIUM 142 MMOL/L (135-145); TOTAL CARBON DIOXIDE 21.7 MMOL/L (24-32); TOTAL PROTEIN 7.3 G/DL (6.4-8.2); eGFR 18 ML/MIN
[2022-03-01 15:36] VITALS: BP 148/73
--- NOTE | 2022-03-02 07:15 | NUR ---
UT WAS SEEN, TREATED AND DC'D BY DOCTOR PRIOR TO FOOD STYLIST
== END 2022-03-02 07:16 | disposition home or self-care (01) ==
LOC: ER 13:15
DX: J45.901 Unspecified asthma with (acute) exacerbation (principal); I13.2 Hypertensive heart and chronic kidney disease with heart failure and with stage 5 chronic kidney disease, or end stage renal disease; E11.22 Type 2 diabetes mellitus with diabetic chronic kidney disease; N18.6 End stage renal disease; I50.89 Other heart failure; Z79.899 Other long term (current) drug therapy
CPT/HCPCS: 36415; 71045; 80053; 83735; 83880; 84484; 85025; 85610; 85730; 93005; 96374; 99285; J1940

== ENCOUNTER 2022-03-04 15:44 | Inpatient (IN) | payer MEDICARE, BC ==
[~2022-03-04] VITALS: Ht 165.1 cm; Wt 100.3 kg
[2022-03-04 17:35] LABS: BASOPHILS # (AUTO) 0.1 X10'3 (0-0.2); BASOPHILS % (AUTO) 1.5 % (0-1); EOSINOPHILS # (AUTO) 0.2 X10'3 (0-0.9); EOSINOPHILS % (AUTO) 3.6 % (0-6); HEMATOCRIT 32.2 % (35.0-45.0); HEMOGLOBIN 10.1 g/dl (12.0-16.0); LYMPHOCYTES % (AUTO) 19.1 % (21-51); MEAN CORPUSCULAR HEMOGLOBIN 30.7 PG (27.0-31.0); MEAN CORPUSCULAR HGB CONC 31.4 g/dL (33.0-36.5); MEAN CORPUSCULAR VOLUME 97.6 FL (78-98); MEAN PLATELET VOLUME 8.8 FL (7.4-10.4); MONOCYTES # (AUTO) 0.4 X10'3 (0-0.9); MONOCYTES % (AUTO) 7.7 % (2-12); NEUTROPHILS # (AUTO) 3.6 X10'3 (1.8-7.7); NEUTROPHILS % (AUTO) 68.1 % (42-75); PLATELET COUNT 199 X10'3 (140-440); RED CELL DISTRIBUTION WIDTH 15.5 % (11.5-14.5); WHITE BLOOD COUNT 5.3 X10'3 (4.5-11.0)
[2022-03-04 17:51] LABS: ALANINE AMINOTRANSFERASE 9 U/L (12-78); ALBUMIN 2.7 G/DL (3.4-5.0); ALBUMIN/GLOBULIN RATIO 0.6 (1.1-1.5); ALKALINE PHOSPHATASE 40 IU/L (46-116); ANION GAP 13 (8-16); ASPARTATE AMINO TRANSFERASE 10 U/L (10-37); BILIRUBIN,TOTAL 0.2 MG/DL (0.1-1.0); BLOOD UREA NITROGEN 39 MG/DL (7-18); BUN/CREATININE RATIO 14.2 (6.6-38.0); CALCIUM 8.4 MG/DL (8.5-10.1); CHLORIDE 111 MMOL/L (99-107); CREATININE 2.75 MG/DL (0.40-0.90); GLUCOSE 172 MG/DL (70-104); POTASSIUM 5.3 MMOL/L (3.5-5.1); SODIUM 147 MMOL/L (135-145); TOTAL CARBON DIOXIDE 23.3 MMOL/L (24-32); TOTAL PROTEIN 7.1 G/DL (6.4-8.2); eGFR 17 ML/MIN
[2022-03-04] MEDS ORDERED: furosemide 10 MG/1 ML 10ml inj IV ONE (17:55)
[2022-03-04 18:57] LABS: CLARITY,URINE CLEAR (Clear); COLOR,URINE YELLOW (Yellow); GLUCOSE, URINE 500 mg/dl (Neg); KETONES,URINE NEGATIVE (Neg); LEUKOCYTE ESTERASE ,URINE NEGATIVE (Neg); NITRITES, URINE NEGATIVE (Neg); OCCULT BLOOD,URINE SMALL (Neg); PH,URINE 5.5 (4.8-8.0); PROTEIN,URINE 100 mg/dl (Neg); UROBILINOGEN,URINE 0.2 E.U/dL (0.2-1.0)
[2022-03-04 19:02] LABS: UA COLLECTION TYPE CLN CATCH MIDSTREAM
[2022-03-04 19:03] LABS: BACTERIA,URINE FEW /HPF (Neg); SQUAMOUS EPITHELIAL CELL,UR FEW /LPF (FEW); WBC,URINE 0-4 /HPF (0-4)
[2022-03-04] MEDS ORDERED: temazepam 15mg capsule PO PRN (21:00)
[2022-03-04] MEDS ORDERED: sacubitril/valsartan 24mg-26mg tablet PO STA (21:10)
[2022-03-04] MEDS ORDERED: morphine 2 MG/ML inj. syringe IV PRN ×2 (22:20)
[2022-03-04] MEDS ORDERED: magnesium hydroxide 30ml (MOM) UD suspension PO PRN (22:20)
[2022-03-04] MEDS ORDERED: diphenhydrAMINE 25mg capsule PO PRN (22:20)
[2022-03-04] MEDS ORDERED: ondansetron/PF 4mg/2ml inj IV PRN (22:20)
[2022-03-04] MEDS ORDERED: ondansetron 4mg rapidly disintigrating tab PO PRN (22:20)
[2022-03-04] MEDS ORDERED: acetaminophen 325mg tablet PO PRN ×2 (22:20)
[2022-03-04] MEDS ORDERED: mag hydrox/Alum hydrox/simeth 30ml oral suspension PO PRN (22:20)
[2022-03-04] MEDS ORDERED: acetaminophen 650mg rectal suppository RC PRN (22:20)
[2022-03-04] MEDS ORDERED: bisacodyl 10mg suppository rectal RC PRN (22:20)
[2022-03-04] MEDS ORDERED: diphenhydrAMINE 50 mg/ml inj IV PRN (22:20)
[2022-03-04] MEDS ORDERED: HYDROcodone/acetaminophen 5mg/325mg tablet PO PRN (22:20)
[2022-03-04] MEDS ORDERED: normal saline 1000ml 1,000 ML IV SCH (22:20)
[2022-03-04] MEDS ORDERED: dextrose 50%-water 50ml dispensing syringe IV PRN ×2 (22:25)
[2022-03-04] MEDS ORDERED: MESSAGE TO PHARMACY PO ONE (22:25)
[2022-03-04] MEDS ORDERED: glucagon, human recombinant 1mg kit SUBCUT PRN (22:25)
[2022-03-04] MEDS ORDERED: DEXTROSE 15 GM of carb/4 tabs (each vial/BOTTLE has 4 tablets) PO PRN ×2 (22:25)
[2022-03-04] MEDS: niCARDipine-NS 40mg/200ml IVPB 200 ML IV SCH (22:58)
[2022-03-04] MEDS: HYDROcodone/acetaminophen 10/325mg tab PO PRN (23:12)
[2022-03-04 23:28] LABS: APTT 27 SECONDS (22-32); D-DIMER 2.35 MG/L FEU (0-0.50)
[2022-03-04 23:34] LABS: MAGNESIUM 1.9 MG/DL (1.5-2.4); PHOSPHORUS 3.5 MG/DL (2.3-4.5)
--- NOTE | 2022-03-05 01:15 | NUR ---
assumed care of pt from Alesia SIMMS, pt has been evaluated by Dr Craft and her questions answered, pt is anxious "and I am scared", talking full sentences, resp even and unlabored, skin p/w/d, cardene gtt stopped per verbal order from Dr Craft. Pt is resting quietly on hospital bed, no beds are available upstairs, pt will remain in ER.
--- NOTE | 2022-03-05 03:12 | NUR ---
pt is sleeping, resp even and unlabored
[2022-03-05 04:30] LABS: BASOPHILS % (AUTO) 0.9 % (0-1); EOSINOPHILS # (AUTO) 0.2 X10'3 (0-0.9); EOSINOPHILS % (AUTO) 3.3 % (0-6); HEMATOCRIT 30.7 % (35.0-45.0); HEMOGLOBIN 9.4 g/dl (12.0-16.0); LYMPHOCYTES # (AUTO) 1.3 X10'3 (1.1-4.8); LYMPHOCYTES % (AUTO) 23.8 % (21-51); MEAN CORPUSCULAR HEMOGLOBIN 30.3 PG (27.0-31.0); MEAN CORPUSCULAR HGB CONC 30.6 g/dL (33.0-36.5); MEAN CORPUSCULAR VOLUME 98.9 FL (78-98); MEAN PLATELET VOLUME 9.3 FL (7.4-10.4); MONOCYTES # (AUTO) 0.5 X10'3 (0-0.9); MONOCYTES % (AUTO) 9.3 % (2-12); NEUTROPHILS # (AUTO) 3.4 X10'3 (1.8-7.7); NEUTROPHILS % (AUTO) 62.7 % (42-75); PLATELET COUNT 175 X10'3 (140-440); RED CELL DISTRIBUTION WIDTH 15.8 % (11.5-14.5); WHITE BLOOD COUNT 5.4 X10'3 (4.5-11.0)
[2022-03-05 04:44] LABS: ALANINE AMINOTRANSFERASE 7 U/L (12-78); ALBUMIN 2.5 G/DL (3.4-5.0); ALBUMIN/GLOBULIN RATIO 0.6 (1.1-1.5); ALKALINE PHOSPHATASE 37 IU/L (46-116); ANION GAP 9 (8-16); ASPARTATE AMINO TRANSFERASE 11 U/L (10-37); BILIRUBIN,TOTAL 0.2 MG/DL (0.1-1.0); BLOOD UREA NITROGEN 38 MG/DL (7-18); BUN/CREATININE RATIO 14.6 (6.6-38.0); CALCIUM 7.9 MG/DL (8.5-10.1); CHLORIDE 110 MMOL/L (99-107); CHOLESTEROL 143 MG/DL (0-200); GLUCOSE 152 MG/DL (70-104); HDL CHOLESTEROL 70 MG/DL (35-60); LDL CHOLESTEROL 52 MG/DL (50-100); POTASSIUM 4.7 MMOL/L (3.5-5.1); SODIUM 142 MMOL/L (135-145); TOTAL CARBON DIOXIDE 23.2 MMOL/L (24-32); TOTAL PROTEIN 6.6 G/DL (6.4-8.2); TRIGLYCERIDES 109 MG/DL (20-135); eGFR 18 ML/MIN
--- NOTE | 2022-03-05 05:18 | NUR ---
pt is sleeping quietly
[2022-03-05] MEDS: niCARDipine-NS 40mg/200ml IVPB 200 ML IV SCH ×3 (06:25→22:25)
[2022-03-05] MEDS: pantoprazole 40mg Tablet.DR PO SCH (07:30)
[2022-03-05] MEDS: heparin, porcine 5000 units/ml vial SQ SCH ×2 (07:42→21:45)
[2022-03-05] MEDS: docusate sod 100mg capsule PO SCH ×2 (07:43→20:00)
[2022-03-05] MEDS ORDERED: furosemide 10 MG/1 ML 10ml inj IV SCH (08:00)
[2022-03-05] MEDS: insulin Lispro (HumaLOG) vial - multi-dose SQ SCH (13:42)
[2022-03-05] MEDS: ALPRAZolam 0.25mg tablet PO SCH ×2 (14:05→21:46)
[2022-03-05] MEDS ORDERED: ipratropium 0.5 MG/2.5ML nebule IH PRN (20:00)
[2022-03-05 20:20] VITALS: BP 166/59
[2022-03-05] MEDS: insulin glargine (Lantus) pen - multi-dose SQ SCH (21:00)
[2022-03-05] MEDS: methylPREDNISolone sod succ/PF 40mg inj. IV SCH (21:46)
[2022-03-05] MEDS: metolazone 2.5mg tablet PO SCH (21:47)
[2022-03-05 22:00] VITALS: BP 173/61
[2022-03-05] MEDS: albuterol 2.5 MG/3 ML nebule NEB SCH ×2 (22:19→23:38)
[2022-03-06] MEDS: furosemide 40mg/4ml inj IV SCH ×4 (00:46→21:34)
[2022-03-06] MEDS: HYDROcodone/acetaminophen 10/325mg tab PO PRN ×3 (01:29→22:43)
[2022-03-06] MEDS ORDERED: EMPAGLIFLOZIN 25 MG PO (01:47)
[2022-03-06] MEDS ORDERED: SEMA1PEN3 SQ (01:47)
[2022-03-06] MEDS ORDERED: INSULIN GLARGINE SQ (01:47)
[2022-03-06] MEDS ORDERED: GLIM4TAB PO (01:47)
[2022-03-06] MEDS ORDERED: lantus solostar SQ (01:50)
[2022-03-06 02:00] VITALS: BP 163/58
[2022-03-06] MEDS: methylPREDNISolone sod succ/PF 40mg inj. IV SCH ×3 (03:15→14:02)
[2022-03-06] MEDS: ALPRAZolam 0.25mg tablet PO SCH ×4 (03:15→21:33)
[2022-03-06] MEDS: albuterol 2.5 MG/3 ML nebule NEB SCH ×6 (03:25→23:15)
[2022-03-06 04:42] VITALS: BP 154/65
[2022-03-06] MEDS: niCARDipine-NS 40mg/200ml IVPB 200 ML IV SCH ×3 (06:25→22:25)
[2022-03-06 06:35] LABS: BASOPHILS % (AUTO) 0.2 % (0-1); EOSINOPHILS % (AUTO) 0.1 % (0-6); HEMATOCRIT 32.4 % (35.0-45.0); HEMOGLOBIN 10.3 g/dl (12.0-16.0); LYMPHOCYTES # (AUTO) 0.4 X10'3 (1.1-4.8); LYMPHOCYTES % (AUTO) 11.8 % (21-51); MEAN CORPUSCULAR HEMOGLOBIN 30.5 PG (27.0-31.0); MEAN CORPUSCULAR HGB CONC 31.7 g/dL (33.0-36.5); MEAN CORPUSCULAR VOLUME 96.3 FL (78-98); MEAN PLATELET VOLUME 8.9 FL (7.4-10.4); NEUTROPHILS # (AUTO) 3.1 X10'3 (1.8-7.7); NEUTROPHILS % (AUTO) 86.9 % (42-75); PLATELET COUNT 197 X10'3 (140-440); RED BLOOD COUNT 3.37 X10'6 (4.20-5.60); RED CELL DISTRIBUTION WIDTH 14.9 % (11.5-14.5); WHITE BLOOD COUNT 3.6 X10'3 (4.5-11.0)
[2022-03-06 07:00] VITALS: BP 148/69
[2022-03-06 07:06] LABS: ALBUMIN 2.5 G/DL (3.4-5.0); ALBUMIN/GLOBULIN RATIO 0.5 (1.1-1.5); ALKALINE PHOSPHATASE 42 IU/L (46-116); ANION GAP 8 (8-16); ASPARTATE AMINO TRANSFERASE 10 U/L (10-37); BILIRUBIN,TOTAL 0.2 MG/DL (0.1-1.0); BLOOD UREA NITROGEN 39 MG/DL (7-18); BUN/CREATININE RATIO 14.4 (6.6-38.0); CALCIUM 7.9 MG/DL (8.5-10.1); CHLORIDE 108 MMOL/L (99-107); GLUCOSE 250 MG/DL (70-104); POTASSIUM 5.1 MMOL/L (3.5-5.1); SODIUM 141 MMOL/L (135-145); TOTAL CARBON DIOXIDE 25.4 MMOL/L (24-32); TOTAL PROTEIN 7.1 G/DL (6.4-8.2); eGFR 17 ML/MIN
[2022-03-06 07:51] LABS: ALANINE AMINOTRANSFERASE 7 U/L (12-78)
[2022-03-06] MEDS: docusate sod 100mg capsule PO SCH ×2 (08:07→21:33)
[2022-03-06] MEDS: heparin, porcine 5000 units/ml vial SQ SCH ×2 (08:07→21:34)
[2022-03-06] MEDS: metolazone 2.5mg tablet PO SCH (08:07)
[2022-03-06] MEDS: pantoprazole 40mg Tablet.DR PO SCH (08:07)
[2022-03-06] MEDS: insulin Lispro (HumaLOG) vial - multi-dose SQ SCH ×4 (08:24→21:39)
--- NOTE | 2022-03-06 09:53 | NUR ---
DM consult: Per EMR pt with T2DM, well controlled with A1c 7.0% down from 7.2% 02/23/22 and 10.0% 12/23/18. DM education not warranted at this time. Will continue to follow. Addendum: 03/06/22 at [address] Amended: Links added.
[2022-03-06 11:00] VITALS: BP 152/69
--- NOTE | 2022-03-06 11:04 | NUR ---
paged hospitalist to approve home meds. Pt upset not getting coreg/plavix this AM
[2022-03-06] MEDS ORDERED: ergocalciferol (vit D2) capsule 50,000 UNITS (1,250mcg) CAPSULE PO SCH (11:05)
[2022-03-06] MEDS ORDERED: SEMAGLUTIDE 1 MG SQ SCH (11:05)
[2022-03-06] MEDS ORDERED: furosemide 40mg tablet PO PRN (11:05)
[2022-03-06] MEDS ORDERED: cinacalcet 30mg tablet PO SCH (11:54)
[2022-03-06] MEDS ORDERED: clopidogrel 75mg tablet PO ONE (11:55)
[2022-03-06] MEDS: oxybutynin 5mg tablet PO SCH (11:57)
[2022-03-06] MEDS: amLODIPine 5mg tablet PO SCH (16:16)
[2022-03-06 18:30] VITALS: BP 165/64
[2022-03-06] MEDS ORDERED: aspirin 81mg tab.chew PO SCH (21:00)
[2022-03-06] MEDS ORDERED: atorvastatin 20mg tablet PO SCH (21:00)
[2022-03-06] MEDS ORDERED: LANTUS 30 UNIT SQ SCH (21:00)
[2022-03-06] MEDS: carVEDilol 12.5mg tablet PO SCH (21:33)
[2022-03-06] MEDS: insulin glargine (Lantus) pen - multi-dose SQ SCH (21:40)
[2022-03-06 22:00] VITALS: BP 147/61
[2022-03-06] MEDS ORDERED: sacubitril/valsartan 49mg-51mg tablet PO ONE (22:15)
[2022-03-06] MEDS ORDERED: sacubitril/valsartan 49mg-51mg tablet PO SCH (22:15)
[2022-03-07 02:00] VITALS: BP 132/60
[2022-03-07] MEDS: ALPRAZolam 0.25mg tablet PO SCH ×3 (02:30→12:58)
[2022-03-07] MEDS: albuterol 2.5 MG/3 ML nebule NEB SCH ×3 (02:44→11:24)
[2022-03-07 06:10] LABS: BASOPHILS % (AUTO) 0.1 % (0-1); EOSINOPHILS % (AUTO) 0 % (0-6); HEMATOCRIT 30.1 % (35.0-45.0); HEMOGLOBIN 9.9 g/dl (12.0-16.0); LYMPHOCYTES # (AUTO) 0.7 X10'3 (1.1-4.8); LYMPHOCYTES % (AUTO) 13.6 % (21-51); MEAN CORPUSCULAR HEMOGLOBIN 30.9 PG (27.0-31.0); MEAN CORPUSCULAR HGB CONC 32.8 g/dL (33.0-36.5); MEAN CORPUSCULAR VOLUME 94.2 FL (78-98); MEAN PLATELET VOLUME 8.6 FL (7.4-10.4); MONOCYTES # (AUTO) 0.4 X10'3 (0-0.9); NEUTROPHILS # (AUTO) 4.2 X10'3 (1.8-7.7); NEUTROPHILS % (AUTO) 79.3 % (42-75); PLATELET COUNT 207 X10'3 (140-440); RED BLOOD COUNT 3.19 X10'6 (4.20-5.60); WHITE BLOOD COUNT 5.3 X10'3 (4.5-11.0)
--- NOTE | 2022-03-07 06:24 | NUR ---
Problems reprioritized. Patient report given, questions answered & plan of care reviewed with MENDEZ BRADY.
[2022-03-07 06:25] LABS: ALANINE AMINOTRANSFERASE 10 U/L (12-78); ALBUMIN 2.6 G/DL (3.4-5.0); ALBUMIN/GLOBULIN RATIO 0.7 (1.1-1.5); ALKALINE PHOSPHATASE 36 IU/L (46-116); ANION GAP 10 (8-16); ASPARTATE AMINO TRANSFERASE 10 U/L (10-37); BILIRUBIN,TOTAL 0.2 MG/DL (0.1-1.0); BLOOD UREA NITROGEN 52 MG/DL (7-18); BUN/CREATININE RATIO 18.2 (6.6-38.0); CALCIUM 7.5 MG/DL (8.5-10.1); CHLORIDE 104 MMOL/L (99-107); CREATININE 2.85 MG/DL (0.40-0.90); GLUCOSE 258 MG/DL (70-104); POTASSIUM 4.6 MMOL/L (3.5-5.1); SODIUM 139 MMOL/L (135-145); TOTAL CARBON DIOXIDE 25.1 MMOL/L (24-32); TOTAL PROTEIN 6.6 G/DL (6.4-8.2); eGFR 16 ML/MIN
[2022-03-07] MEDS: niCARDipine-NS 40mg/200ml IVPB 200 ML IV SCH (06:25)
[2022-03-07 07:00] VITALS: BP 131/54
[2022-03-07] MEDS ORDERED: clopidogrel 75mg tablet PO SCH (08:00)
[2022-03-07] MEDS ORDERED: potassium chloride 10mEq ER tablet PO SCH (08:00)
[2022-03-07] MEDS ORDERED: EMPAGLIFLOZIN 25 MG TABLET PO SCH (08:00)
[2022-03-07] MEDS: oxybutynin 5mg tablet PO SCH (08:06)
[2022-03-07] MEDS: carVEDilol 12.5mg tablet PO SCH (08:06)
[2022-03-07] MEDS: furosemide 40mg/4ml inj IV SCH (08:06)
[2022-03-07] MEDS: docusate sod 100mg capsule PO SCH (08:06)
[2022-03-07] MEDS: amLODIPine 5mg tablet PO SCH (08:07)
[2022-03-07] MEDS: pantoprazole 40mg Tablet.DR PO SCH (08:07)
[2022-03-07] MEDS: heparin, porcine 5000 units/ml vial SQ SCH (08:08)
[2022-03-07] MEDS: insulin Lispro (HumaLOG) vial - multi-dose SQ SCH ×2 (09:16→12:56)
[2022-03-07 11:00] VITALS: BP 117/44
[2022-03-07] MEDS ORDERED: FURO40TA4 PO (13:50)
== END 2022-03-07 15:05 | disposition home health service (06) | DRG 189 ==
LOC: ER 15:44 → ED HOLD 22:24 → PCU 3S 03-05 19:55
PROVIDERS: ADMIT Family Medicine; ATTEND Internal Medicine
DX: J96.00 Acute respiratory failure, unspecified whether with hypoxia or hypercapnia (principal); I50.43 Acute on chronic combined systolic (congestive) and diastolic (congestive) heart failure; I13.0 Hypertensive heart and chronic kidney disease with heart failure and stage 1 through stage 4 chronic kidney disease, or unspecified chronic kidney disease; I16.1 Hypertensive emergency; N17.9 Acute kidney failure, unspecified; N18.4 Chronic kidney disease, stage 4 (severe); J44.1 Chronic obstructive pulmonary disease with (acute) exacerbation; Z20.822 Contact with and (suspected) exposure to COVID-19; D64.9 Anemia, unspecified; E11.22 Type 2 diabetes mellitus with diabetic chronic kidney disease; E11.65 Type 2 diabetes mellitus with hyperglycemia; K57.90 Diverticulosis of intestine, part unspecified, without perforation or abscess without bleeding; D63.1 Anemia in chronic kidney disease; E78.00 Pure hypercholesterolemia, unspecified; E87.5 Hyperkalemia; E88.09 Other disorders of plasma-protein metabolism, not elsewhere classified; F17.210 Nicotine dependence, cigarettes, uncomplicated; F41.9 Anxiety disorder, unspecified; I25.10 Atherosclerotic heart disease of native coronary artery without angina pectoris; I25.2 Old myocardial infarction; Z79.82 Long term (current) use of aspirin; Z90.49 Acquired absence of other specified parts of digestive tract; Z90.710 Acquired absence of both cervix and uterus; Z99.81 Dependence on supplemental oxygen; Z79.899 Other long term (current) drug therapy
CPT/HCPCS: 36415; 71045; 80053; 80061; 81001; 82948; 83036; 83735; 83880; 84100; 84484; 85025; 85379; 85610; 85730; 87081; 87635; 92508; 92616; 93005; 93306; 94640; 94760; 96374; 97116; 97161; 97530; 97535; 99285; A6258; C9803; G0378; J0604; J1644; J1815; J1940; J2920; J3490; J7030